=== PATIENT | female | born 2005 | race Caucasian/White ===

== ENCOUNTER 2023-07-18 21:34 | Emergency (ER) | payer OTHER, SELFPAY ==
[2023-07-18 21:42] VITALS: BP 150/98; PULSE 96; RESP 18; TEMP 36.3; O2SAT 100
--- NOTE | 2023-07-18 23:50 | ED.GENADULT ---
HPI - General Adult General Chief complaint: Animal Bite Stated complaint: bit by cat, unknown rabbies vaccination Time Seen by Provider: 07/18/23 23:32 History of Present Illness HPI narrative: Patient 78-year-old female who presents emergency department with chief complaint of left index finger cat bite. 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 Related Data Allergies Allergy/AdvReac Type Severity Reaction Status Date / Time Sulfa (Sulfonamide Allergy Mild Nausea and Verified 07/18/23 21:58 Antibiotics) Vomiting Review of Systems Review of Systems: A 10 system review of systems was completed on the patient and is negative except for what is stated in the HPI. Nursing and ancillary documentation was reviewed. PMFSH Past Medical History Medical History Migraines Surgical History Surgical History H/O wisdom tooth extraction Family History Family History Grandparent Heart disease Social History Social History Smoking status: Never smoker Alcohol intake: never Substance use: never Lack of Transportation: No Lack of Food: Never True Current Housing: I Have Housing Concerned About Future Housing: No Difficulty Paying Gas/Electric Bills: No Difficulty Paying for Meds: No Currently Unemployed: No Education: High School Diploma/GED Difficulty w/ Childcare or Family Care: No Living arrangements: with family Occupation/Education: occupation Gender identity (if verbalized by the patient): Female Sexual Orientation (if Verbalized by the Patient): Straight or Heterosexual Exam Narrative: GENERAL: Well-appearing, well-nourished, and in no acute distress. HEAD: Normocephalic, atraumatic. EYES: PERRLA and EOMI. ENT: Nares clear, no rhinorrhea or epistaxis. Mucous membranes moist. NECK: Supple. CHEST: Clear to auscultation. No respiratory distress. HEART: Regular rate and rhythm. No murmur heard. Normal peripheral pulses. ABDOMEN: Soft, nontender, nondistended, normal active bowel sounds. EXTREMITIES: Normal range of motion. No edema. SKIN: Warm, dry, no rash. Several small puncture wounds present to the left index finger NEURO: No focal deficits. Alert and oriented x3. PSYCH: Normal mood and affect. Course Vital Signs Vital signs: Vital Signs Temperature 36.3 C L 07/18/23 21:42 Pulse Rate 96 07/18/23 21:42 Respiratory Rate 18 07/18/23 21:42 Blood Pressure 150/98 H 07/18/23 21:42 Pulse Oximetry 100 07/18/23 21:42 Oxygen Delivery Room Air 07/18/23 21:42 Temperature 36.3 C L 07/18/23 21:42 Pulse Rate 96 07/18/23 21:42 Respiratory Rate 18 07/18/23 21:42 Blood Pressure 150/98 H 07/18/23 21:42 Pulse Oximetry 100 07/18/23 21:42 Oxygen Delivery Room Air 07/18/23 21:42 Medical Decision Making MDM Narrative Medical decision making narrative: Differential diagnosis includes feline bite, puncture wounds, Patient is up-to-date on her tetanus status. It was discussed at length with the patient and family potential for rabies vaccine versus no rabies vaccine. The bite was a provoked attack and also it was a feline bite. In review of the CDC data for transmission to human cases the family and patient have opted at this time not do rabies vaccination. The patient will be started on Augmentin and was instructed to
[2023-07-19] MEDS: AMOXICILLIN/CLAVULANATE K 875-125 MG TAB 1 TABLET PO (00:12)
[2023-07-19 00:19] VITALS: BP 143/82; PULSE 74; RESP 16; TEMP 36.6; O2SAT 100
== END 2023-07-19 00:20 | disposition home or self-care (01) ==
PROVIDERS: Emergency Provider Emergency Medicine; PCP Pediatrics
DX: S61.251A Open bite of left index finger without damage to nail, initial encounter (principal); W55.01XA Bitten by cat, initial encounter
CPT/HCPCS: 99283; A9270

== ENCOUNTER 2023-10-05 12:38 | Outpatient (CLI) | payer OTHER, SELFPAY ==
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
== END 2023-10-05 12:39 ==
LOC: GOSHIMG 12:39
PROVIDERS: PCP Pediatrics; Visit Provider Chiropractor
DX: M54.2 Cervicalgia (principal); M54.50 Low back pain, unspecified
CPT/HCPCS: 72052; 72110